=== PATIENT | female | born 1980 | race Hispanic/Latino ===

== ENCOUNTER 2022-04-30 21:20 | Emergency (ER) | payer SELFPAY ==
--- OUTSIDE RECORDS SUMMARY | 2022-04-30 21:22 | XMS REPORT | Continuity of Care Document ---
:1980 Author Organization [facility] t Address [address] [place] [address] Dr. Lau [address] [place] [address] Care Team Providers Name Role Phone Unavailable Unavailable Unavailable Problems This patient has no known problems. Allergies, Adverse Reactions, Alerts This patient has no known allergies or adverse reactions. Medications This patient has no known medications. Procedures This patient has no known procedures. Results This patient has no known results.
[2022-04-30] MEDS ORDERED: HYDROCODONE/APAP 7.5/325 MG TAB ONE (22:14)
[2022-04-30] MEDS ORDERED: LIDOCAINE 1% MPF 30 ML VIAL ONE (22:14)
[2022-04-30] MEDS ORDERED: BUPIVACAINE 0.5% PF 10 ML VIAL ONE (22:16)
[2022-04-30] MEDS ORDERED: TETANUS & DIPHTHERIA TOX,ADULT 0.5 ML VIAL ONE (23:54)
[2022-05-01] MEDS ORDERED: LIDOCAINE 1% W/EPI 1:100,000 MDV 50 ML VIAL ONE (00:12)
[2022-05-01] MEDS ORDERED: CEFAZOLIN SODIUM 1 GM/VIAL ONE (02:27)
[2022-05-01] MEDS ORDERED: WATER FOR INJ,STERILE 10 ML ONE (02:27)
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
[2022-05-01 02:46] VITALS: TEMP 98.2
[2022-05-01 02:48] VITALS: BP 118/75; O2SAT 96
== END 2022-05-01 02:36 | disposition home or self-care (01) ==
LOC: ER 21:20
PROC: 0JQ10ZZ Repair Face Subcutaneous Tissue and Fascia, Open Approach (ICD-10-PCS; principal; 2022-05-01)
DX: S01.81XA Laceration without foreign body of other part of head, initial encounter (principal); S61.411A Laceration without foreign body of right hand, initial encounter; S21.219A Laceration without foreign body of unspecified back wall of thorax without penetration into thoracic cavity, initial encounter; S80.212A Abrasion, left knee, initial encounter; Z23 Encounter for immunization
CPT/HCPCS: 90714; J0690

== ENCOUNTER 2022-05-08 17:57 | Emergency (ER) | payer SELFPAY ==
--- OUTSIDE RECORDS SUMMARY | 2022-05-08 18:00 | XMS REPORT | Continuity of Care Document ---
:1980 Author Organization [facility] t Address [address] [place] [address] Dr. Lau [address] [place] [id number] Care Team Providers Name Role Phone Unavailable Unavailable Unavailable Problems This patient has no known problems. Allergies, Adverse Reactions, Alerts This patient has no known allergies or adverse reactions. Medications This patient has no known medications. Procedures This patient has no known procedures. Results This patient has no known results.
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
--- NOTE | 2022-05-08 19:59 | EDPHYS ---
Physician Documentation [facility] Name: Margot Kaba Age: 41 yrs Sex: Female : 1980 Arrival Date: 05/08/2022 Time: 17:59 Bed 10 Private MD: ED Physician Juan Kaye HPI: 05/08 20:18 This 41 yrs old Female presents to ER via Ambulatory with complaints of Suture kb Removal. 20:18 The patient has sutures on the left uatsdin and forehead. Previous treatment: The kb patient was initially treated 7 day(s) ago, the care was rendered at [facility], Treatment type: The patient's original treatment included sutures. Sutures/wanda progress: The patient has no c/o's. The wound is well-healing with no redness, swelling, discharge, or dehiscence reported. The patient has not experienced similar symptoms in the past. The patient has not recently seen a physician. SUPERVISOR ELEMENTARY EDUCATION: 18:16 LMP 04/21/2022 ap3 Historical: - Allergies: 18:15 No Known Allergies; ap3 - Home Meds: 18:15 None [Active]; ap3 - PMHx: 18:15 None; ap3 - Immunization history:: Client reports having NOT received the Covid vaccine. - Social history:: Smoking status: Patient/guardian denies using tobacco, the patient reports quitting approximately 1 years ago, Patient uses alcohol, occasionally. ROS: 20:16 Constitutional: Negative for fever, chills, and weight loss. kb 20:16 Skin: Positive for of the left uatsdin and forehead, sutures in place. 20:16 All other systems are negative. Exam: 20:17 Constitutional: This is a well developed, well nourished patient who is awake, alert, kb and in no acute distress. Head/Face: Normocephalic, atraumatic. ENT: Moist Mucous membranes Cardiovascular: Regular rate and rhythm with a normal S1 and S2. No gallops, murmurs, or rubs. No pulse deficits. Respiratory: Respirations even and unlabored. No increased work of breathing. Talking in full sentences MS/ Extremity: Pulses equal, no cyanosis. Neurovascular intact. Full, normal range of motion. Neuro: Awake and alert, GCS 15, oriented to person, place, time, and situation. Moves all extremities. Normal gait. Psych: Awake, alert, with orientation to person, place and time. Behavior, mood, and affect are within normal limits. 20:17 Skin: Wound recheck: Suture laceration closure: the wound is healing well, the edges are well approximated, no evidence of dehiscence, no drainage, no erythema, no swelling. Vital Signs: 18:11 BP 121 / 81; Pulse 73; Resp 17; Temp 98.4; Pulse Ox 100% ; Weight 52.16 kg; Height 5 ap3 ft. 2 in. (157.48 cm); 19:50 BP 125 / 75; Pulse 70; Resp 16; Pulse Ox 98% ; Pain 0/10; kb3 18:11 Body Mass Index 21.03 (52.16 kg, 157.48 cm) ap3 Procedures: 20:19 Suture/Staple removal: Removed 13 sutures, from left uatsdin and forehead, site appears kb well healed, Patient tolerated well. MDM: 18:59 Patient medically screened. kb 20:16 Data reviewed: vital signs, nurses notes. Data interpreted: Pulse oximetry: on room air kb is 100 %. Interpretation: normal. Counseling: I had a detailed discussion with the patient and/or guardian regarding: the historical points, exam findings, and any diagnostic results supporting the discharge/admit diagnosis, the need for outpatient follow up, a family practitioner, to return to the emergency department if symptoms worsen or persist or if there are any questions or concerns that arise at home. 20:18 ED course: Removed every other suture (13 total). Pt to return in 3-4 days for removal kb of the rest. Administered Medications: No medications were administered Disposition Summary: 05/08/22 19:58 Discharge Ordered Location: Home kb Condition: Stable kb Diagnosis - Encounter for removal of sutures kb Followup: kb - With: Emergency Department - When: As needed - Reason: Worsening of condition Followup: kb - With: Private Physician - When: 2 - 3 days - Reason: Recheck today's complaints, Continuance of care, Re-evaluation by your physician Discharge Instructions: - Discharge Summary Sheet kb - Suture Removal, Care After kb Forms: - Medication Reconciliation Form kb - Thank You Letter kb - Antibiotic Education kb - Prescription Opioid Use kb Signatures: Leanne Torres FNP-C FNP-Ckb Arabella Hernandez, RN RN ap3
[2022-05-08 21:58] VITALS: TEMP 98.4
[2022-05-08 22:00] VITALS: BP 125/75; O2SAT 98
== END 2022-05-08 20:35 | disposition home or self-care (01) ==
LOC: ER 17:57
DX: Z48.02 Encounter for removal of sutures (principal)

== ENCOUNTER 2022-05-13 16:17 | Emergency (ER) | payer SELFPAY ==
--- OUTSIDE RECORDS SUMMARY | 2022-05-13 16:19 | XMS REPORT | Continuity of Care Document ---
:1980 Author Organization [facility] t Address [address] [place] [address] Dr. Lau [address] [place] [address] Care Team Providers Name Role Phone Unavailable Unavailable Unavailable Problems This patient has no known problems. Allergies, Adverse Reactions, Alerts This patient has no known allergies or adverse reactions. Medications This patient has no known medications. Procedures This patient has no known procedures. Results This patient has no known results.
--- NOTE | 2022-05-13 17:07 | ER ---
Nurse's Notes [facility] Name: Margot Kaba Age: 41 yrs Sex: Female : 1980 Arrival Date: 05/13/2022 Time: 16:18 Bed 9 Private MD: Diagnosis: Encounter for removal of sutures Presentation: 05/13 16:36 Chief complaint: Patient states: Needs remaining sutures removed from left side of aa5 forehead, reports she had every other suture removed a few days ago. Coronavirus screen: At this time, the client does not indicate any symptoms associated with coronavirus-19. Ebola Screen: No symptoms or risks identified at this time. Initial Sepsis Screen: Does the patient meet any 2 criteria? No. Patient's initial sepsis screen is negative. Does the patient have a suspected source of infection? No. Patient's initial sepsis screen is negative. Risk Assessment: Do you want to hurt yourself or someone else? Patient reports no desire to harm self or others. Onset of symptoms was May 13, 2022. 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 - Social history:: Smoking status: Patient denies any tobacco usage or history of. Screenin:00 Abuse screen: Denies threats or abuse. Denies injuries from another. Nutritional kb3 screening: No deficits noted. Tuberculosis screening: No symptoms or risk factors identified. Fall Risk None identified. Assessment: 17:00 General: Appears in no apparent distress. Behavior is calm, cooperative, Received care kb3 of pt from triage. Pt presents today to have remaining sutures removed from laceration repair done in this ED 12 days ago. 17:00 Pain: Denies pain. kb3 17:15 General: Jasmyne EQUIPMENT OILER at bedside to remove 13 sutures without incident.. kb3 Vital Signs: 16:36 BP 125 / 77; Pulse 80; Resp 16 S; Temp 98.0(O); Pulse Ox 100% on R/A; aa5 ED Course: 16:18 Patient arrived in ED. am2 16:24 Jasmy[facility] Richey [facility]C [facility] snw 16:24 Sean Davis MD is Attending Physician. snw 16:36 Jimena Valenzuela, RN is Primary Nurse. kb3 16:36 Arm band placed on. aa5 16:38 Triage completed. aa5 17:00 Patient has correct armband on for positive identification. Bed in low position. Call kb3 light in reach. 17:00 Suture removal. Patient did not have IV access during this emergency room visit. kb3 Administered Medications: No medications were administered Medication: 17:00 VIS not applicable for this client. kb3 Outcome: 17:07 Discharge ordered by . snw 18:01 Discharged to home kb3 18:01 Condition: stable 18:01 Discharge instructions given to patient, Instructed on discharge instructions, follow up and referral plans. Demonstrated understanding of instructions, follow-up care. 18:04 Patient left the ED. kb3 Signatures: Jasmyne Richey FNP-C [employer]TER-Csnw Simona Meeks, RN RN aa5 Arabella Baires am2 Jimena Valenzuela, RN RN kb3 Corrections: (The following items were deleted from the chart) 18:00 17:59 General: Appears in no apparent distress. Behavior is calm, cooperative, Received kb3 care of pt from triage. Pt presents today to have remaining sutures removed from laceration repair done in this ED 12 days ago. kb3
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
[2022-05-13 18:22] VITALS: BP 125/77; TEMP 98; O2SAT 100
== END 2022-05-13 18:04 | disposition home or self-care (01) ==
LOC: ER 16:17
DX: Z48.02 Encounter for removal of sutures (principal)
CPT/HCPCS: 99281